=== PATIENT | male | born 1980 | race Caucasian/White ===

== ENCOUNTER 2019-04-21 10:47 | Emergency (ER) | payer OTHER ==
[2019-04-21 11:00] VITALS: BP 132/86; PULSE 89; TEMP 98.3; BMI 29.4
--- NOTE | 2019-04-21 11:20 | PDOC ---
History of Present Illness - General Chief Complaint: Back Pain Stated Complaint: INJ.LOWER BACK Time Seen by Provider: 04/21/19 11:00 - History of Present Illness Initial Comments: 04/21/19 11:17 CHIEF COMPLAINT: low back pain HISTORY OF PRESENT ILLNESS: 38 yo M with hx of spondylosis working for [employer], with no significant PMH, presnts to fast track with low back pain s/p lifting a patient. Patient states he believes the pain to be muscular and that he does not want any medication. Denies any loss of sensation to lower extremities, denies loss of bowel or bladder function. No recent travel or sick contacts. PAST MEDICAL HISTORY: spondylosis FAMILY HISTORY: Denies SOCIAL HISTORY: Denies tobacco, alcohol, illicit drug use. SURGICAL HISTORY: Denies ALLERGIES: No known drug allergies REVIEW OF SYSTEMS General/Constitutional: Denies fever or chills. Denies weakness, weight change. HEENT: Denies change in vision. Denies ear pain or discharge. Denies sore throat. Cardiovascular: Denies chest pain or shortness of breath. Respiratory: Denies cough, wheezing, or hemoptysis. Gastrointestinal: Denies nausea, vomiting, diarrhea or constipation. Denies rectal bleeding. Genitourinary: Denies dysuria, frequency, or change in urination. Musculoskeletal: Low back pain after lifting patient today. Skin and breasts: Denies rash or easy bruising. Neurologic: Denies headache, vertigo, loss of consciousness, or loss of sensation. Psychiatric: Denies depression or anxiety. PHYSICAL EXAM General Appearance: Well-appearing, appropriately dressed. No apparent distress , no intoxication. HEENT: EOMI, PERRLA, normal ENT inspection, normal voice, TMs normal, pharynx normal. No conjunctival pallor. No photophobia, scleral icterus. Neck: Supple. Trachea midline. No tenderness, rigidity, carotid bruit, stridor , lymphadenopathy, or thyromegaly. Respiratory/Chest: Lungs CTAB. No shortness of breath, chest tenderness, respiratory distress, accessory muscle use. No crackles, rales, rhonchi, stridor , wheezing, dullness Cardiovascular: RRR. S1, S2. No JVD, murmur, bradycardia, tachycardia. Vascular Pulses: Dorsalis-Pedis (R): 2+, Dorsalis-Pedis (L): 2+ Gastrointestinal/Abdominal: Normal bowel sounds. Abdomen soft, non-distended. No tenderness or rebound tenderness. No organomegaly, pulsatile mass, guarding , hernia, hepatomegaly, splenomegaly. Lymphatic: No adenopathy, tenderness. Musculoskeletal/Extremities: TTP to b/l paravertebral muscles over l3-L5. No loss of sensation to b/l extremities, no saddles anesthesia, patient fully ambulatory. FROM of all extremities, normal capillary refill. Pelvis Stable. No CVA tenderness. No tenderness to extremities, pedal edema, swelling, erythema or deformity. Integumentary: Appropriate color, dry, warm. 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 Fully oriented, alert. Appropriate mood/affect. Motor strength 5/5. No appreciable EOM palsy, facial droop or sensory deficit. Past History - Past Medical History Allergies/Adverse Reactions: Allergies Allergy/AdvReac Type Severity Reaction Status Date / Time No Known Allergies Allergy Verified 04/21/19 11:00 Home Medications: Ambulatory Orders NK [No Known Home Medication] 04/21/19 COPD: No - Immunization History Immunization Up to Date: No - Psycho Social/Smoking Cessation Hx Smoking History: Never smoked Have you smoked in the past 12 months: No Information on smoking cessation initiated: No Hx Alcohol Use: No Drug/Substance Use Hx: No *Physical Exam - Vital Signs Last Vital Signs Temp Pulse Resp BP Pulse Ox 98.3 F 89 18 132/86 100 04/21/19 10:57 04/21/19 10:57 04/21/19 10:57 04/21/19 10:57 04/21/19 10:57 Medical Decision Making - Medical Decision Making 04/21/19 11:18 38 yo M with hx of spondylolysis working for [employer], with no significant PMH, presnts to fast track with low back pain s/p lifting a patient. Patient refused any meds stating he will be fine with just a heating pad at home. Advised patient to f/u with ortho if symptoms persist, patient verbalized understanding and agrees to plan. Discharge - Discharge Information Problems reviewed: Yes Clinical Impression/Diagnosis: Low back pain Qualifiers: Chronicity: acute Back pain laterality: bilateral Sciatica presence: without sciatica Qualified Code(s): M54.5 - Low back pain Condition: Stable Disposition: HOME - Admission No - Follow up/Referral Referrals: Matthew Gupta [Primary Care Provider] - Jimbo Bowman MD [Staff Physician] - - Patient Discharge Instructions Patient Printed Discharge Instructions: DI for Low Back Pain - Post Discharge Activity Work/Back to School Note: Back to Work
== END 2019-04-21 11:24 | disposition home or self-care (01) ==
LOC: JERFT 10:47
DX: M54.5 Low back pain (principal); X50.9XXA Other and unspecified overexertion or strenuous movements or postures, initial encounter; Y93.F2 Activity, caregiving, lifting; Y92.9 Unspecified place or not applicable; Y99.0 Civilian activity done for income or pay
CPT/HCPCS: 99282-25

== ENCOUNTER 2020-07-01 06:27 | Emergency (ER) | payer OTHER ==
[2020-07-01 06:33] VITALS: BP 112/78; PULSE 93; TEMP 98.6; BMI 28.7
[2020-07-01] MEDS ORDERED: morphine SULFATE 4 MG/ML VIAL ONE (06:36)
[2020-07-01] MEDS ORDERED: morphine CARPU-JECT 2 MG/1 ML DISP.SYRIN IVPUSH ONE (06:36)
[2020-07-01] MEDS ORDERED: KETOROLAC TROMETHAMINE 15 MG/ML VIAL IVPUSH ONE (07:38)
[2020-07-01] MEDS ORDERED: KETOROLAC TROMETHAMINE 15 MG/ML VIAL ONE (07:44)
== END 2020-07-01 08:21 | disposition home or self-care (01) ==
LOC: JER 06:27
PROC: 3E0333Z Introduction of Anti-inflammatory into Peripheral Vein, Percutaneous Approach (ICD-10-PCS; principal; 2020-07-01)
PROC: 3E033NZ Introduction of Analgesics, Hypnotics, Sedatives into Peripheral Vein, Percutaneous Approach (ICD-10-PCS; 2020-07-01)
DX: S99.911A Unspecified injury of right ankle, initial encounter (principal)
CPT/HCPCS: 73590-TC-RT-FY; 73610-TC-RT-FY; 73630-TC-RT-FY; 99284-25